=== PATIENT | female | born 1985 | race Hispanic/Latino ===

== ENCOUNTER 2016-06-28 22:56 | Emergency (ER) | payer SELFPAY ==
[~2016-06-28] VITALS: Ht 147.3 cm; Wt 60.1 kg
[~2016-06-28 22:56] MED LIST: AMOX-358 PO; AMOX875T2 PO; DOXY-182 PO; FERR-74 PO; HYDR-3702 PO; IBUP-788 PO; IBUP200C PO; NF-MEDROXA IM; OXYC1TAB87 PO; PHEN-640 PO; PREN1TAB39 PO
--- OUTSIDE RECORDS SUMMARY | 2016-06-28 23:00 | XMS REPORT | Continuity of Care Document ---
Author Author [facility] Address Unknown Phone Unavailable Allergies Active Description Code Type Severity Reaction Onset Reported/Identified Relationship to Patient Clinical Status Yes No Known Drug Allergies [id number] Drug Allergy Unknown N/ A 06/10/2015 Yes No Known Drug Allergies [id number] Drug Allergy Unknown N/ A 09/04/2015 Medications Problems Date Dx Coded Attending Type Code Diagnosis Diagnosed By 11/18/2011 Ot 663.31 11/18/2011 Ot 664.01 11/18/2011 Ot V27.0 11/18/2011 Ot V64.06 06/15/2013 JACOBO CUENCA, CATALINA Aguayo Ot 663.31 06/15/2013 JACOBO CUENCA, CATALINA Aguayo Ot 664.11 06/15/2013 JACOBO CUENCA, CATALINA Aguayo Ot V23.7 06/15/2013 JACOBO CUENCA, CATALINA Aguayo Ot V27.0 04/09/2015 KIM CUENCA, CHRIS Eaton Ot N93.8 04/09/2015 KIM CUENCA, CHRIS Eaton Ot R10.2 06/10/2015 Ot N30.91 CYSTITIS, UNSPECIFIED WITH HEMATURIA 06/10/2015 Ot R10.2 PELVIC AND PERINEAL PAIN 06/13/2015 Ot N30.91 06/13/2015 Ot R10.2 06/13/2015 Ot N30.91 06/13/2015 Ot R10.2 09/04/2015 Ot K08.8 OTHER SPECIFIED DISORDERS OF TEETH AND S Procedures Results Encounters ACCT No. Visit Date/Time Discharge Status Pt. Type Provider Facility Loc./Unit Complaint [id number] 04/09/2015 17:04:00 2015 19:50:00 [id number] 06/13/2013 23:30:00 2013 10:55:00 DIS Inpatient JACOBO CUENCA, CATALINA Aguayo [facility] OB [id number] 09/04/2015 03:06:00 Document Registration [id number] 06/13/2015 14:41:00 Document Registration [id number] 04/09/2015 17:03:00 Document Registration [id number] 11/17/2011 00:05:00 Document Registration
--- OUTSIDE RECORDS SUMMARY | 2016-06-28 23:01 | XMS REPORT | Continuity of Care Document ---
Author Author [facility] Address Unknown Phone Unavailable Allergies Active Description Code Type Severity Reaction Onset Reported/Identified Relationship to Patient Clinical Status Yes No Known Drug Allergies [id number] Drug Allergy Unknown N/ A 06/10/2015 Yes No Known Drug Allergies [id number] Drug Allergy Unknown N/ A 09/04/2015 Medications [...] Status Pt. Type Provider Facility Loc./Unit Complaint [id number] 04/09/2015 17:04:00 2015 19:50:00 [id number] 06/[facility]/2013 23:30:00 2013 10:55:00 DIS Inpatient JACOBO CUECNA, CATALINA Aguayo [facility] OB [id number] 09/04/2015 03:06:00 Document Registration [id number] 06/13/2015 14:41:00 Document Registration [id number] 04/09/2015 17:03:00 Document Registration [id number] 11/17/2011 00:05:00 Document Registration
[2016-06-29] MEDS ORDERED: PROMETHAZINE 25 MG/ML (PHENERGAN) 1 ML VIAL IM ONE (01:10)
[2016-06-29] MEDS ORDERED: HYDROmorphone 1 MG/ML (DILAUDID) SYRINGE IM ONE (01:10)
[2016-06-29] MEDS ORDERED: AMOXICILLIN 500 MG (AMOXIL) CAPSULE PO ONE ×2 (01:55→02:00)
[2016-06-29] MEDS ORDERED: HYDR-3702 PO (01:58)
[2016-06-29] MEDS ORDERED: AMOX500C5 PO (01:58)
[2016-06-29 02:17] VITALS: BP 106/66
== END 2016-06-29 02:20 | disposition home or self-care (01) ==
LOC: ED 22:57
DX: J02.9 Acute pharyngitis, unspecified (principal)
CPT/HCPCS: 87070; 87651; 96372; 99283; J1170; J2550